=== PATIENT | female | born 1985 | race Two or more races ===

== ENCOUNTER 2020-06-13 09:46 | Emergency (ER) | payer MEDICAID ==
[~2020-06-13] VITALS: Ht 154.9 cm; Wt 54.4 kg
[2020-06-13 10:01] VITALS: BP 124/84
[2020-06-13] MEDS ORDERED: ONDANSETRON 4 MG TAB.RAPDIS SL ONE (10:30)
[2020-06-13] MEDS ORDERED: IBUPROFEN 600 MG TABLET PO ONE (10:30)
[2020-06-13] MEDS ORDERED: ONDANSETRON 4 MG TAB.RAPDIS ONE (10:59)
[2020-06-13] MEDS ORDERED: IBUPROFEN 600 MG TABLET ONE (10:59)
== END 2020-06-13 11:13 | disposition home or self-care (01) ==
LOC: ER 09:51
DX: R51.9 Headache, unspecified (principal); R11.2 Nausea with vomiting, unspecified; R10.13 Epigastric pain; Z20.828 Contact with and (suspected) exposure to other viral communicable diseases
CPT/HCPCS: 99283; C9803; U0003; Q0162